=== PATIENT | female | born 1935 | race Caucasian/White ===

== ENCOUNTER → 2022-05-23 | Outpatient (CLI) | payer MEDICARE ==
[~2022-05-23] MED LIST: ASPI81CH PO; ATOR10 PO; CHOL10002 PO; LEVSOD88 PO; LISI20 PO
== END | disposition home or self-care (01) ==
LOC: LAB 16:16 → LAB SHORT 16:16
DX: R10.9 Unspecified abdominal pain (principal)
CPT/HCPCS: 87086